=== PATIENT | male | born 1985 | race Two or more races ===

== ENCOUNTER 2016-10-04 17:52 | Emergency (ER) | payer MEDICAID ==
[~2016-10-04] VITALS: Ht 172.7 cm; Wt 80.7 kg
[2016-10-04 18:15] VITALS: BP 168/99
[2016-10-04] MEDS ORDERED: IBUPROFEN 600 MG TAB PO ONE (21:00)
== END 2016-10-04 21:26 | disposition home or self-care (01) ==
LOC: ER 17:55
DX: S91.114A Laceration without foreign body of right lesser toe(s) without damage to nail, initial encounter (principal); M24.574 Contracture, right foot; W25.XXXA Contact with sharp glass, initial encounter; Y93.89 Activity, other specified; Y99.8 Other external cause status; Y92.89 Other specified places as the place of occurrence of the external cause
CPT/HCPCS: 73630

== ENCOUNTER 2022-08-26 10:00 | Emergency (ER) | payer MEDICAID ==
[~2022-08-26] VITALS: Ht 175.3 cm; Wt 80.0 kg
[2022-08-26 10:18] LABS: Basophils # (auto) 0.1 10 ^3/uL (0-0.2); Eosinophils # (auto) 0.2 10 ^3/uL (0-0.8); Eosinophils % (auto) 2.3 % (0.0-7.0); Hematocrit 39.7 % (41.0-53.0); Hemoglobin 13.5 g/dL (13.5-17.5); Mean Corpuscular Hemoglobin 28.9 pg (28.0-32.0); Monocytes # (auto) 0.8 10 ^3/uL (0-1.3); Monocytes % (auto) 10.7 % (0.0-12.0); Neutrophils # (auto) 4.2 10 ^3/uL (1.6-8.6); Nucleated Red Blood Cells % 0.2 %; Red Blood Cells 4.68 10^6/uL (4.5-5.90); Red Cell Distribution Width 13.5 % (11.8-14.3); White Blood Cell 7.2 10^3/uL (4.4-10.8)
[2022-08-26 10:32] LABS: Albumin 3.9 g/dL (3.4-5.0); Calcium 8.8 mg/dL (8.5-10.1); Magnesium 2.2 mg/dL (1.6-2.6); Potassium 4.8 mmol/L (3.5-5.1)
[2022-08-26 10:35] LABS: BUN/Creatinine Ratio 14.7 (10.0-20.0); Bilirubin, Total 0.4 mg/dL (0.2-1.0); Total Protein 7.1 g/dL (6.4-8.2)
[2022-08-26] MEDS ORDERED: KETOROLAC TROMETH 30 MG/ML 1ML VIAL IV ONE (11:15)
[2022-08-26] MEDS ORDERED: ACETAMINOPHEN 325 MG TAB PO ONE (11:15)
[2022-08-26] MEDS ORDERED: ALBUTEROL SULF 2.5 MG/0.5ML(0.5%) NEB SOLN NEB ONE (11:15)
[2022-08-26] MEDS ORDERED: methylPREDNISolone SOD SUCC 125 MG/2 ML VL IV ONE (11:15)
[2022-08-26] MEDS ORDERED: IPRATROPIUM BROM 0.5 MG/2.5ML INH SOL NEB ONE (11:15)
[2022-08-26 11:19] LABS: Urine Bacteria NONE SEEN /hpf (None Seen); Urine Blood Negative /uL (Negative); Urine Specific Gravity 1.018 (1.001-1.035); Urine WBC <1 /hpf (0 - 3)
[2022-08-26] MEDS ORDERED: DexAMETHasone INJECTION 10 MG in D5W 5% 50 ML IV ONE (11:30)
[2022-08-26 11:44] VITALS: BP 154/88
[2022-08-26] MEDS ORDERED: DexAMETHasone SOD PHOS 10MG/1ML VIAL INJ IV ONE (11:45)
[2022-08-26] MEDS ORDERED: PRED20TA2 PO (13:49)
[2022-08-26] MEDS ORDERED: ALBUAER3 IN (13:49)
[2022-08-26] MEDS ORDERED: IBUP400T23 PO (13:50)
== END 2022-08-26 14:00 | disposition home or self-care (01) ==
LOC: ER 10:00
DX: R07.89 Other chest pain (principal); J45.909 Unspecified asthma, uncomplicated; F17.200 Nicotine dependence, unspecified, uncomplicated; Z79.899 Other long term (current) drug therapy
CPT/HCPCS: 36415; 71045; 80053; 81001; 83735; 83880; 84484; 85025; 93005; 94640; 96374; 96375; 99285; J1100; J1885; J7060; J7644

== ENCOUNTER 2023-09-30 23:47 | Emergency (ER) | payer MEDICAID ==
[~2023-09-30] VITALS: Ht 172.7 cm; Wt 76.9 kg
[~2023-09-30 23:47] MED LIST: ALBUAER3 IN; IBUP1TAB4 PO; PRED20TA2 PO
[2023-10-01 00:08] VITALS: BP 164/118; PULSE 105; RESP 12; O2SAT 99
== END 2023-10-01 06:14 | disposition left against medical advice (07) ==
LOC: ER 23:47
DX: R11.2 Nausea with vomiting, unspecified (principal); Z53.21 Procedure and treatment not carried out due to patient leaving prior to being seen by health care provider